=== PATIENT | female | born 1990 | race Caucasian/White ===

== ENCOUNTER 2016-10-23 16:34 | Emergency (ER) | payer OTHER ==
[~2016-10-23] VITALS: Wt 105.5 kg
[~2016-10-23 16:34] MED LIST: AMO500 PO; IBUP-1542 PO; LORA-441 PO; ONDA4TAB35 PO
[2016-10-23 19:07] VITALS: BP 140/72; PULSE 98; RESP 20; TEMP 98
--- NOTE | 2016-10-23 19:45 | ERD ---
ER Documentation Chief Complaint Date/Time DATE: 10/23/16 TIME: 19:42 Chief Complaint HEADACHE, NUMBNESS ON FACE, DIZZINESS, ONSET 3 DAYS HPI Patient is a 26-year-old female with no medical problems who presents with facial tingling and hand tingling. The patient has bilateral facial tingling of bilateral arm and hand tingling. The symptoms started 3 days ago. She has had no treatment as of yet. She had headache and shortness of breath as well. She called her primary doctor but there was nobody available. The symptoms have been the same over the past 3 days. ROS All systems reviewed and are negative except as per history of present illness. Medications Home Meds Active Scripts Ibuprofen* (Motrin*) 600 Mg Tab, 600 MG PO Q6, #30 TAB Prov:MANUEL WAGNER PA-C 07/29/16 Amoxicillin* (Amoxicillin*) 500 Mg Cap, 500 MG PO TID for 10 Days, CAP Prov:MANUEL WAGNER PA-C 07/29/16 Ondansetron Hcl* (Zofran* ODT) 4 mg -ODT Tab.disper, 4 MG PO Q6 Y for NAUSEA AND /OR VOMITING, #20 TAB Prov:JUAN ZIMMER PA-C 05/16/16 Ibuprofen* (Motrin*) 600 Mg Tab, 600 MG PO Q6, #30 TAB Prov:JUAN ZIMMER PA-C 05/16/16 Lorazepam* (Ativan*) 0.5 Mg Tablet, 0.5 MG PO Q8, #14 Prov:TERRA CARMONA PA-C 07/08/15 Allergies Allergies: Coded Allergies: No Known Allergy (Verified , 10/23/16) PMhx/Soc History of Surgery: Yes (cholesystectomy) Anesthesia Reaction: No Hx Neurological Disorder: No Hx Respiratory Disorders: No Hx Cardiac Disorders: No Hx Psychiatric Problems: No Hx Miscellaneous Medical Probl: No Hx Alcohol Use: No Hx Substance Use: No Hx Tobacco Use: No Smoking Status: Never smoker FmHx Family History: diabetes Physical Exam Vitals Vital Signs Date Time Temp Pulse Resp B/P Pulse Ox O2 Delivery O2 Flow Rate FiO2 10/23/16 19:07 98.0 98 20 140/72 97 Room Air 10/23/16 16:38 98.2 106 18 147/80 97 Physical Exam Const: No acute distress Head: Atraumatic Eyes: Normal Conjunctiva ENT: Normal External Ears, Nose and Mouth. Neck: Full range of motion..~ No meningismus. Resp: Clear to auscultation bilaterally Cardio: Regular rate and rhythm, no murmurs Abd: Soft, non tender, non distended. Normal bowel sounds Skin: No petechiae or rashes Back: No midline or flank tenderness Ext: No cyanosis, or edema Neur: Awake and alert, cranial nerves II through XII intact, strength is 5 out of 5 in all 4 extremities, no pronator drift Psych: Normal Mood and Affect Results 24 hrs Laboratory Tests Test 10/23/16 18:41 Bedside Glucose 97mg/dL Procedures/[facility] Urine test is positive. EKG read by me: Rate/Rhythm: Regular rate and rhythm at a normal rate Intervals: Normal Impression: No evidence of ischemia or arrhythmia Accu-Chek is normal. Patient is a 26-year-old female presents with paresthesias of the face and hands. Her EKG and Accu-Chek are normal. Her urine test is positive and I believe she has new onset . She has no abdominal pain or vaginal bleeding and I do not believe she requires further workup for ectopic at this time. I believe outpatient management is appropriate. The patient can follow-up with her primary doctor. She was trying to get . Departure Diagnosis: Primary Impression: Weeks of gestation: unspecified Qualified Code: Z33.1 - , unspecified gestational age Additional Impression: Facial paresthesia Condition: Fair Patient Instructions: , New Dx, Paraesthesias Additional Instructions: Call your primary care doctor TOMORROW for an appointment during the next 1-2 days.See the doctor sooner or return here if your condition worsens before your appointment time. COLIN SR MD Oct 23, 2016 19:45
== END 2016-10-23 19:06 | disposition home or self-care (01) ==
LOC: FTE 16:34
DX: R20.2 Paresthesia of skin (principal); R06.02 Shortness of breath; Z33.1 Pregnant state, incidental
CPT/HCPCS: 82962; 93005; Z7502

== ENCOUNTER 2016-11-08 11:28 | Emergency (ER) | END 2016-11-08 16:09 | disposition home or self-care (01) | DX: O26.891 Other specified pregnancy related conditions, first trimester (principal); R10.2 Pelvic and perineal pain; Z3A.01 Less than 8 weeks gestation of pregnancy | CPT/HCPCS: 36415; 76801; 76817; 81001; 84702; 85025; 86900; 86901; Z7502 ==

== ENCOUNTER 2016-12-23 11:35 | Emergency (ER) | payer OTHER ==
[~2016-12-23] VITALS: Ht 157.5 cm; Wt 89.9 kg
[~2016-12-23 11:35] MED LIST changes: +CEPH-443 PO
[2016-12-23 11:37] VITALS: Ht 157.5 cm; Wt 89.9 kg
[2016-12-23] MEDS ORDERED: ACETAMINOPHEN 500 MG TAB PO STA (13:36)
[2016-12-23] MEDS ORDERED: ONDANSETRON (ODT) 4 MG TAB ODT STA (13:36)
--- NOTE | 2016-12-23 14:44 | RADRPT ---
PROCEDURE: US OB. CLINICAL INDICATION: Size and dates , pelvic pain TECHNIQUE: Multiple sonographic images of the pelvis and gravid uterus were obtained. The images were reviewed on a PACS workstation. COMPARISON: 11/08/16 FINDINGS: There is a single viable intrauterine gestation. Cardiac activity is present with 150 beats per min joe. There is a variable presentation. The placenta is anterior. There is no evidence for an abruption or placenta previa. Measurements were made in order to determine age. The results are as follows: BPD =2.5 cm HC =9.1 cm AC =8.3 cm FL =1.2 cm Estimated gestational age of approximately 14 weeks and 1 day based on ultrasound measurements. Clinical age: 13 weeks and 4 days. The estimated date of delivery is 06/22/17, based on ultrasound measurements. The EFW = 88 g, 64.8%, based on LMP age. RPTAT: AA IMPRESSION: Single viable intrauterine gestation of approximately 14 weeks and 1 day based on ultrasound measur ements. .Kian Moreno MD, Date Time Electronically viewed and signed by .Kian Moreno MD, on 12/23/2016 14:43 .S/
[2016-12-23] MEDS ORDERED: D-ME473S2 PO (15:14)
[2016-12-23] MEDS ORDERED: TYL500 PO (15:14)
--- NOTE | 2016-12-23 15:46 | ERD ---
ER Documentation Chief Complaint Date/Time DATE: 12/23/16 TIME: 15:44 Chief Complaint FLU X 3 DAYS, 13 WEEKS HPI This is a 26-year-old female that presents to the ER with fever, cough, body aches, nausea, vomiting for the last 2 days. Patient states that she is 13 weeks she denies any vaginal bleeding. She does admit to pelvic pain whenever she coughs. She denies any chest pain or shortness of breath. Vomiting is nonbilious nonbloody. She denies any diarrhea. ROS 12 point review of systems was done, all negative except per HPI. Medications Home Meds Active Scripts Acetaminophen* (Tylenol*) 500 Mg Tab, 1000 MG PO Q8H Y for PAIN AND OR ELEVATED TEMP for 3 Days, TAB Prov:YELENA HERRERA 12/23/16 Dextromethorphan Hb-Promethazine Hcl* (Promethazine DM* Syrup) 473 Ml Syrup, 10 ML PO Q6 Y for COUGH for 7 Days, ML Prov:YELENA HERRERA 12/23/16 Cephalexin* (Keflex*) 500 Mg Capsule, 500 MG PO BID for 7 Days, CAP Prov:BETZY GREEN PA-C 11/08/16 Ibuprofen* (Motrin*) 600 Mg Tab, 600 MG PO Q6, #30 TAB Prov:MANUEL WAGNER PA-C 07/29/16 Amoxicillin* (Amoxicillin*) 500 Mg Cap, 500 MG PO TID for 10 Days, CAP Prov:MANUEL WAGNER PA-C 07/29/16 Ondansetron Hcl* (Zofran* ODT) 4 mg -ODT Tab.disper, 4 MG PO Q6 Y for NAUSEA AND /OR VOMITING, #20 TAB Prov:JUAN ZIMMER PA-C 05/16/16 Ibuprofen* (Motrin*) 600 Mg Tab, 600 MG PO Q6, #30 TAB Prov:JUAN ZIMMER PA-C 05/16/16 Lorazepam* (Ativan*) 0.5 Mg Tablet, 0.5 MG PO Q8, #14 Prov:TERRA CARMONA PA-C 07/08/15 Allergies Allergies: Coded Allergies: No Known Allergy (Verified , 11/08/16) PMhx/Soc History of Surgery: Yes (CHOLECYSECTOMY) Anesthesia Reaction: No Hx Neurological Disorder: No Hx Respiratory Disorders: No Hx Cardiac Disorders: No Hx Psychiatric Problems: No Hx Miscellaneous Medical Probl: Yes (gestational DM) Hx Alcohol Use: No Hx Substance Use: No Hx Tobacco Use: No Smoking Status: Never smoker Physical Exam Vitals Vital Signs Date Time Temp Pulse Resp B/P Pulse Ox O2 Delivery O2 Flow Rate FiO2 12/23/16 11:37 98.1 96 20 139/79 99 Physical Exam GENERAL: The patient is well-developed, well-nourished, in no acute distress. NECK: Cervical spine is non tender with no step off. Supple, no nuchal rigidity HEENT: Atraumatic. Pupils equal, round and reactive to light. Extraocular muscles are grossly intact. Conjunctivae pink, no discharge. Bilateral tympanic membranes are clear with no evidence of erythema, effusion or dulling of the light reflex. Tonsilar erythema with no exudates or uvular deviation. Clear rhinorrhea. RESPIRATORY: Clear to auscultation bilaterally. There are no rales, wheezes or rhonchi. HEART: Regular rate and rhythm. No murmurs, clicks, rubs or gallops. EXTREMITIES: No clubbing or cyanosis. Full range of motion. Grossly neurovascularly intact. NEUROLOGIC: Alert and oriented. Cranial nerves II through XII are intact. SKIN: There is no rash. The skin is warm and dry. Results 24 hrs Current Medications Medications (Trade) Dose Ordered Sig/Stepan Route PRN Reason Start Time Stop Time Status Last Admin Dose Admin Ondansetron HCl (Zofran Odt) 4 mg ONCE STAT ODT 12/23/16 13:36 12/23/16 13:38 DC 12/23/16 13:44 Acetaminophen (Tylenol Tab) 1,000 mg ONCE STAT PO 12/23/16 13:36 12/23/16 13:38 DC 12/23/16 13:44 Procedures/MDM Differential diagnosis includes but is not limited to; Viral URI, allergic rhinitis, bronchitis, pertussis,pneumonia. This is likely viral in etiology. Clinical suspicion for pneumonia is low as patient appears well, is not hypoxic or in any respiratory distress. Additionally, patients physical examination is benign. Plan was discussed with patient they understand and agree. Patient needs to follow up with PCP in 1-2 days or return to ER sooner if symptoms worsen. Departure Diagnosis: Primary Impression: Upper respiratory infection Condition: Stable Patient Instructions: Preventing Common Respiratory Infections Additional Instructions: Call your primary care doctor TOMORROW for an appointment during the next 1-2 days.See the doctor sooner or return here if your condition worsens before your appointment time. YELENA HERRERA Dec 23, 2016 15:46
== END 2016-12-23 15:33 | disposition home or self-care (01) ==
LOC: FTE 11:35
DX: O99.512 Diseases of the respiratory system complicating pregnancy, second trimester (principal); J06.9 Acute upper respiratory infection, unspecified; Z3A.14 14 weeks gestation of pregnancy
CPT/HCPCS: 76805; 87400; Z7502; Z7610

== ENCOUNTER 2016-12-31 23:12 | Emergency (ER) | payer OTHER ==
[~2016-12-31] VITALS: Ht 162.6 cm; Wt 99.5 kg
[~2016-12-31 23:12] MED LIST changes: +D-ME473S2 PO; +TYL500 PO
[2016-12-31 23:19] VITALS: Ht 162.6 cm; Wt 99.5 kg
[2017-01-01] MEDS ORDERED: RANITIDINE 150 MG TAB PO ONE (02:00)
--- NOTE | 2017-01-01 02:10 | ERD ---
ER Documentation Chief Complaint Date/Time DATE: 01/01/17 TIME: 02:10 Chief Complaint AP with cramping. 14 weeks HPI 26 year old female presents with CC abdominal cramping, she is 14 weeks . Associated symptoms include one episode of vomiting, diarrhea SCHAEFER and fatigue. She denies vaginal bleeding, dysuria and fever. She rates her pain a 10 /10 in severity, has not taken meds for relief. ROS All systems reviewed and are negative except as per history of present illness. Medications Home Meds Active Scripts Ranitidine Hcl* (Zantac*) 150 Mg Tablet, 150 MG PO BID Y for EPIGASTRIC PAIN, # 30 TAB Prov:Kim Vines PA-C 01/01/17 Dicyclomine Hcl* (Bentyl*) 10 Mg Capsule, 10 MG PO BID for 5 Days, #10 CAP Prov:Kim Vines PA-C 01/01/17 Acetaminophen* (Tylenol*) 500 Mg Tab, 1000 MG PO Q8H Y for PAIN AND OR ELEVATED TEMP for 3 Days, TAB Prov:YELENA HERRERA 12/23/16 Dextromethorphan Hb-Promethazine Hcl* (Promethazine DM* Syrup) 473 Ml Syrup, 10 ML PO Q6 Y for COUGH for 7 Days, ML Prov:YELENA HERRERA 12/23/16 Cephalexin* (Keflex*) 500 Mg Capsule, 500 MG PO BID for 7 Days, CAP Prov:BETZY GREEN PA-C 11/08/16 Ibuprofen* (Motrin*) 600 Mg Tab, 600 MG PO Q6, #30 TAB Prov:MANUEL WAGNER PA-C 07/29/16 Amoxicillin* (Amoxicillin*) 500 Mg Cap, 500 MG PO TID for 10 Days, CAP Prov:MANUEL WAGNER PA-C 07/29/16 Ondansetron Hcl* (Zofran* ODT) 4 mg -ODT Tab.disper, 4 MG PO Q6 Y for NAUSEA AND /OR VOMITING, #20 TAB Prov:JUAN ZIMMER PA-C 05/16/16 Ibuprofen* (Motrin*) 600 Mg Tab, 600 MG PO Q6, #30 TAB Prov:JUAN ZIMMER PA-C 05/16/16 Lorazepam* (Ativan*) 0.5 Mg Tablet, 0.5 MG PO Q8, #14 Prov:TERRA CARMONA PA-C 07/08/15 Allergies Allergies: Coded Allergies: No Known Allergy (Verified , 11/08/16) PMhx/Soc History of Surgery: Yes (CHOLECYSECTOMY) Anesthesia Reaction: No Hx Neurological Disorder: No Hx Respiratory Disorders: No Hx Cardiac Disorders: No Hx Psychiatric Problems: No Hx Miscellaneous Medical Probl: Yes (gestational DM) Hx Alcohol Use: No Hx Substance Use: No Hx Tobacco Use: No Smoking Status: Never smoker Physical Exam Vitals Vital Signs Date Time Temp Pulse Resp B/P Pulse Ox O2 Delivery O2 Flow Rate FiO2 01/01/17 04:49 98.4 87 16 143/73 99 Room Air 12/31/16 23:19 98.9 103 18 143/85 97 Physical Exam GENERAL: No acute distress and nontoxic. LUNGS: Clear to auscultation. No accessory muscle use. No wheezing, no crackles. No signs or symptoms of respiratory distress. HEART: Regular rate and rhythm. No murmurs, clicks, rubs or gallops. ABDOMEN: Soft, mild tenderness to palpation of epigastric area and nondistended. Bowel sounds positive. No rebound or guarding. No gross peritoneal signs. No Leyva or McBurney point tenderness. No gross masses. BACK: No midline tenderness, no costovertebral tenderness. EXTREMITIES: There is no peripheral cyanosis or edema. No focal pain or notable trauma. Full range of motion. Good capillary refill. NEURO: The patient moves all 4 extremities with 5/5 strength. Cranial nerves are grossly intact. Normal mental status for age. Good muscle tone. SKIN: There is no apparent rash, petechiae, erythema or swelling. Good skin turgor. Result Diagram: 01/01/17 0200 01/01/17 0200 Results 24 hrs Laboratory Tests Test 01/01/17 02:00 Alanine Aminotransferase (ALT/SGPT) 18IU/L Albumin 4.5g/dl Albumin/Globulin Ratio 1.09 Alkaline Phosphatase 78IU/L Anion Gap 21 Aspartate Amino Transf (AST/SGOT) 15IU/L Basophils # 0.010^3/ul Basophils % 0.2% Blood Urea Nitrogen 9mg/dl Calcium Level 9.7mg/dl Carbon Dioxide Level 22mmol/L Chloride Level 102mmol/L Creatinine 0.54mg/dl Direct Bilirubin 0.00mg/dl Eosinophils # 0.010^3/ul Eosinophils % 0.2% Globulin 4.10g/dl Glucose Level 105mg/dl Hematocrit 40.9% Hemoglobin 14.4g/dl Indirect Bilirubin 0.2mg/dl Lipase 70U/L Lymphocytes # 1.410^3/ul Lymphocytes % 7.2% Mean Corpuscular Hemoglobin 32.1pg Mean Corpuscular Hemoglobin Concent 35.2g/dl Mean Corpuscular Volume 91.1fl Mean Platelet Volume 9.7fl Monocytes # 0.610^3/ul Monocytes % 3.0% Neutrophils # 16.910^3/ul Neutrophils % 89.0% Nucleated Red Blood Cells # 0.010^3/ul Nucleated Red Blood Cells % 0.0/100WBC Platelet Count 10209^3/UL Potassium Level 4.0mmol/L Red Blood Count 4.4910^6/ul Red Cell Distribution Width 12.3% Sodium Level 141mmol/L Total Bilirubin 0.2mg/dl Total Protein 8.6g/dl Urine Bacteria MODERATE Urine Bilirubin NEGATIVE Urine Calcium Oxalate Crystals MODERATE Urine Clarity CLEAR Urine Color YELLOW Urine Glucose NEGATIVE% Urine Hemoglobin 1+ Urine Ketones NEGATIVE Urine Leukocyte Esterase NEGATIVE Urine Microscopic RBC 2-5/HPF Urine Microscopic WBC 0-2/HPF Urine Nitrite NEGATIVE Urine Specific Jordan >=1.030 Urine Squamous Epithelial Cells FEW Urine Total Protein NEGATIVE Urine Urobilinogen 0.2 E.U./dL Urine pH 5.5 White Blood Count 19.010^3/ul Current Medications Medications (Trade) Dose Ordered Sig/Stepan Route PRN Reason Start Time Stop Time Status Last Admin Dose Admin Ranitidine HCl (Zantac) 150 mg ONCE ONCE PO 01/01/17 02:00 01/01/17 02:01 DC 01/01/17 02:06 Dicyclomine HCl (Bentyl) 20 mg ONCE ONCE PO 01/01/17 02:30 01/01/17 02:31 DC 01/01/17 02:45 Metoclopramide HCl (Reglan Liq) 10 mg ONCE ONCE PO 01/01/17 03:00 01/01/17 03:01 DC 01/01/17 02:51 Procedures/MDM Patient is 14 weeks , on exam she has mild epigastric tenderness. I ordered Reglan and Bentyl for nausea and pain, since these are safe to use during . I also ordered basic lab work and a pelvic ultrasound. Awaiting results prior to further management. CBC: marked leukocytosis, likely due to and viral illness CMP: no severe electrolyte imbalance, normal kidney and liver function Lipase: WNL, pancreatitis unlikely OB US (interpretation by radiologist): IMPRESSION: Single viable intrauterine gestation of approximately 15 weeks 1 day. The estimated date of delivery is June 24, 2017. I consulted with my supervising physician over the leukocytosis and he stated that as long as pelvic US is normal, has stable vitals, and appears to be in NAD she can be discharged as it is normal for increases in WBC during . I reexamined the patient, she was sound asleep and then woke to tell me that her Sx had improved. I gave her a copy of all of her results and advised her to follow-up. She had a negative murphys sign, no rebound tenderness, and no tenderness over mcburneys point. At this time I have low suspicion for cholecystitis, pancreatitis, appendicitis, bowel obstruction, demise, UTI, pyelonephritis , and sepsis. Patient is stable for discharge and outpatient management. Advised to follow-up with PCP in 1-2 days. Departure Diagnosis: Primary Impression: Abdominal pain Abdominal location: epigastric Qualified Code: R10.13 - Epigastric pain Additional Impression: Second trimester Condition: Good Kim Vines PA-C Jan 01, 2017 02:10
[2017-01-01 02:17] LABS: ADD SCAN DIFF NO
[2017-01-01 02:19] LABS: BASOPHILS % 0.2 % (0.0-2.0); EOSINOPHILS % 0.2 % (0.0-7.0); HEMATOCRIT 40.9 % (37.0-47.0); HEMOGLOBIN 14.4 g/dl (12.0-16.0); LYMPHOCYTES # 1.4 10^3/ul (0.8-2.9); LYMPHOCYTES % 7.2 % (15.0-51.0); MEAN CORPUSCULAR HEMOGLOBIN 32.1 pg (29.0-33.0); MEAN CORPUSCULAR HGB CONC 35.2 g/dl (32.0-37.0); MEAN CORPUSCULAR VOLUME 91.1 fl (82.0-101.0); MEAN PLATELET VOLUME 9.7 fl (7.4-10.4); MONOCYTE # 0.6 10^3/ul (0.3-0.9); NEUTROPHIL # 16.9 10^3/ul (1.6-7.5); PLATELET COUNT 395 10^3/UL (140-415); RED BLOOD COUNT 4.49 10^6/ul (4.20-5.40); RED CELL DISTRIBUTION WIDTH 12.3 % (11.5-14.5)
[2017-01-01 02:23] LABS: ADD UMIC YES; URINE BILIRUBIN (Dip) NEGATIVE (NEGATIVE); URINE BLOOD (Dip) 1+ (NEGATIVE); URINE COLOR YELLOW (YELLOW); URINE GLUCOSE (Dip) NEGATIVE (NEGATIVE); URINE KETONES (Dip) NEGATIVE (NEGATIVE); URINE LEUKOCYTE ESTERASE (Dip) NEGATIVE (NEGATIVE); URINE NITRITE (Dip) NEGATIVE (NEGATIVE); URINE TOTAL PROTEIN (Dip) NEGATIVE (NEGATIVE); URINE UROBILINOGEN (Dip) 0.2 E.U./dL (0.1-1.0)
[2017-01-01] MEDS ORDERED: DICYCLOMINE 10 MG CAP PO ONE (02:30)
[2017-01-01 02:32] LABS: ALBUMIN 4.5 g/dl (3.3-4.9)
[2017-01-01 02:35] LABS: BILIRUBIN,INDIRECT 0.2 mg/dl (0-1.1); BILIRUBIN,TOTAL 0.2 mg/dl (0.2-1.3); CREATININE 0.54 mg/dl (0.44-1.00)
[2017-01-01 02:36] LABS: ALBUMIN/GLOBULIN RATIO 1.09; CALCIUM 9.7 mg/dl (8.4-10.2); TOTAL PROTEIN 8.6 g/dl (6.1-8.1)
[2017-01-01 02:38] LABS: SQUAMOUS EPITHELIAL CELL,UR FEW
[2017-01-01 02:39] LABS: BACTERIA,URINE MODERATE
[2017-01-01] MEDS ORDERED: METOCLOPRAMIDE (1 MG/ML) 10 ML CUP PO ONE (03:00)
--- NOTE | 2017-01-01 04:14 | RADRPT ---
PROCEDURE: ULTRASOUND OBSTETRICAL CLINICAL INDICATION: 26-year-old female with abdominal pain. TECHNIQUE: Multiple sonographic images of the pelvis were obtained. The images were reviewed on a PACS workstation. COMPARISON: No prior studies are available for comparison. FINDINGS: The cervix is not well visualized. There is a single viable intrauterine gestation. Cardiac activit y is present with 159 beats per minute. There is a variable presentation. Measurements were made in order to determine age. The results are as follows: BPD = 2.86 cm, HC = 10.68 cm, AC = 8.66 cm, FL = 1.72 cm. This yields and estimated gestational age of approximately 15 weeks 1 day. The estimated date of delivery is June 24, 2017. The EFW = 113 +/- 17 g. The GP is 78%. The placenta is anterior. There is no evidence for an abruption or placenta previa. There is an adequate amount of amniotic fluid with the maximal vertical pocket of 3.0 cm. IMPRESSION: Single viable intrauterine gestation of approximately 15 weeks 1 day. The estimated date of deliver y is June 24, 2017. .Elbert Landaverde MD, Date Time Electronically viewed and signed by .Elbert Landaverde MD, MD on 01/01/2017 04:13 .M/
[2017-01-01] MEDS ORDERED: RANI150T9 PO (04:35)
[2017-01-01] MEDS ORDERED: DICY10CA60 PO (04:35)
[2017-01-01 04:49] VITALS: BP 143/73; PULSE 87; RESP 16; TEMP 98.4
== END 2017-01-01 04:51 | disposition home or self-care (01) ==
LOC: FTE 23:12
DX: O26.892 Other specified pregnancy related conditions, second trimester (principal); R10.13 Epigastric pain; Z3A.15 15 weeks gestation of pregnancy
CPT/HCPCS: 76805; 80053; 81001; 83690; 85025; Z7610; 81003

== ENCOUNTER 2017-02-20 12:30 | Inpatient (IN) | payer OTHER ==
[~2017-02-20] VITALS: Ht 162.6 cm; Wt 99.8 kg
[~2017-02-20 12:30] MED LIST changes: +DICY10CA60 PO; +RANI150T9 PO
[2017-02-20 12:51] VITALS: Ht 162.6 cm; Wt 99.8 kg
[2017-02-20 12:52] VITALS: BP 129/62; PULSE 90
[2017-02-20] MEDS ORDERED: PRENAT PO (12:53)
[2017-02-20] MEDS: LACTATED RINGER'S 1,000 ML IV SCH ×6 (13:56→23:45)
--- NOTE | 2017-02-20 14:01 | RADRPT ---
PROCEDURE: Limited OB ultrasound for cervical length. CLINICAL INDICATION: labor TECHNIQUE: Sonographic evaluation to assess the cervical length was performed. Transvaginal imagi ng of the gravid uterus was performed. COMPARISON: OB ultrasound 01/01/2017 FINDINGS: The cervix appears open with a diameter of approximately 3.7 cm. There is no segment of the cervix which appears closed. presentation is cephalic. The placenta is anterior. There is no evide nce of abruption or placenta previa. Positive heart tones are seen. The heart rate equ al 150 bpm. IMPRESSION: 1. The cervix is dilated with a diameter of approximately 3.7 cm. RPTAT: KK .Jason Selby MD, MD Date Time Electronically viewed and signed by .Jason Selby MD, MD on 02/20/2017 14:00 .B/
[2017-02-20 14:11] LABS: ADD UMIC YES; URINE BILIRUBIN (Dip) NEGATIVE (NEGATIVE); URINE BLOOD (Dip) TRACE (NEGATIVE); URINE COLOR LT. YELLOW (YELLOW); URINE GLUCOSE (Dip) NEGATIVE (NEGATIVE); URINE KETONES (Dip) TRACE (NEGATIVE); URINE LEUKOCYTE ESTERASE (Dip) TRACE (NEGATIVE); URINE NITRITE (Dip) NEGATIVE (NEGATIVE); URINE TOTAL PROTEIN (Dip) NEGATIVE (NEGATIVE); URINE UROBILINOGEN (Dip) 0.2 E.U./dL (0.1-1.0)
[2017-02-20 14:23] LABS: BACTERIA,URINE FEW
--- NOTE | 2017-02-20 15:36 | RADRPT ---
PROCEDURE: US OB. CLINICAL INDICATION: Size and dates , open cervix TECHNIQUE: Multiple sonographic images of the pelvis and gravid uterus were obtained. The images were reviewed on a PACS workstation. COMPARISON: Same day FINDINGS: There is a single viable intrauterine gestation. Cardiac activity is present with 152 beats per min joe. There is a vertex/variable presentation. The placenta is anterior. There is no evidence for an abruption or placenta previa. There is a normal amount of amniotic fluid with a MVP = 5.1 cm. Measurements were made in order to determine age. The results are as follows: BPD =5.4 cm HC =19.3 cm AC =20.3 cm FL =3.9 cm Estimated gestational age of approximately 22 weeks and 6 days based on ultrasound measurements. Clinical age: 22 weeks and 0 days. The estimated date of delivery is 06/20/2017, based on ultrasound measurements. The EFW = 609 g, >97%, based on LMP age. RPTAT: AA IMPRESSION: Single viable intrauterine gestation of approximately 22 weeks and 6 days based on ultrasound measu rements. .Kian Moreno MD, Date Time Electronically viewed and signed by .Kian Moreno MD, on 02/20/2017 15:36 .S/
[2017-02-20] MEDS ORDERED: MAGNESIUM SULFATE 20 GM/500 ML 500 ML IV SCH ×2 (15:44→16:00)
[2017-02-20] MEDS ORDERED: OXYTOCIN 30 UNITS/LR 500 ML IV SCH ×2 (16:00)
[2017-02-20] MEDS ORDERED: LIDOCAINE 1% (MPF) 30 ML INJ INJ PRN (16:00)
[2017-02-20] MEDS ORDERED: MAGNESIUM SULFATE 4 GM/100 ML 100 ML IV ONE (16:00)
[2017-02-20] MEDS ORDERED: MAGNESIUM SULFATE 4 GM/100 ML 100 ML IVPB ONE (16:00)
[2017-02-20] MEDS ORDERED: BETAMET NA PHOS/AC(6 MG/ML) 5ML INJ IM ONE (16:00)
[2017-02-20] MEDS ORDERED: OXYTOCIN 30 UNITS/LR 500 ML IV PRN (16:00)
[2017-02-20] MEDS ORDERED: AMPICILLIN 2 GM/NS (PMX) 100 ML IV ONE (16:00)
[2017-02-20] MEDS ORDERED: LACTATED RINGER'S 1,000 ML IV PRN (16:00)
[2017-02-20] MEDS ORDERED: MISOPROSTOL 200 MCG TAB PR PRN (16:00)
[2017-02-20] MEDS ORDERED: METHYLERGONOVINE 0.2 MG INJ IM PRN (16:00)
[2017-02-20] MEDS ORDERED: CARBOPROST 250 MCG INJ IM PRN (16:00)
[2017-02-20 17:10] LABS: ADD SCAN DIFF NO
[2017-02-20 17:14] LABS: BASOPHILS % 0.1 % (0.0-2.0); EOSINOPHILS % 0.2 % (0.0-7.0); HEMATOCRIT 35.9 % (37.0-47.0); LYMPHOCYTES # 1.5 10^3/ul (0.8-2.9); LYMPHOCYTES % 9.5 % (15.0-51.0); MEAN CORPUSCULAR HEMOGLOBIN 30.8 pg (29.0-33.0); MEAN CORPUSCULAR HGB CONC 33.4 g/dl (32.0-37.0); MEAN CORPUSCULAR VOLUME 92.3 fl (82.0-101.0); MONOCYTE # 0.9 10^3/ul (0.3-0.9); MONOCYTES % 5.3 % (0.0-11.0); NEUTROPHIL # 13.5 10^3/ul (1.6-7.5); NEUTROPHILS % 84.3 % (39.0-77.0); PLATELET COUNT 267 10^3/UL (140-415); RED BLOOD COUNT 3.89 10^6/ul (4.20-5.40); RED CELL DISTRIBUTION WIDTH 13.5 % (11.5-14.5); WHITE BLOOD COUNT 16.1 10^3/ul (4.8-10.8)
[2017-02-20 17:34] LABS: INR 1.04; PROTIME 13.6 Sec (12.2-14.2); PT RATIO 1.1
[2017-02-20 17:35] LABS: PARTIAL THROMBOPLASTIN TIME 30.8 Sec (25.0-35.0)
[2017-02-20] MEDS ORDERED: BUTORPHANOL 2 MG INJ IV PRN ×2 (18:30)
--- NOTE | 2017-02-20 18:47 | ERD ---
DATE OF SERVICE: The patient is a 26-year-old who is a ____ who presents at 22 weeks and complaining of cramping. No vaginal bleeding, positive movement. PAST MEDICAL HISTORY: None. PAST SURGICAL HISTORY: None. ____ at term. PHYSICAL EXAMINATION: VITAL SIGNS: Stable. GENERAL: Examination within normal limits. ULTRASOUND: Shows a at 22.6 weeks, 619 grams, notes dilation of the cervix to 3.7 cm. Ve rtex presentation. UA: possible UTI. ASSESSMENT: ____ at 22 weeks with labor. The infant's weight is 619 grams. Disc ussion had with the perinatologist who felt that due to the weight, the patient would be started on magnesium sulfate, betamethasone, and also ampicillin and NICU consult also will be done. I told the patient the fact that the infant is very , at this point, we will try to stop the labor. Risks and benefits of admission discussed, as well as infection, bleeding, damage to organs all discussed. The patient understands the risks and consents to hospital admission, consents to ma gnesium sulfate and betamethasone. All questions were answered. Dictated By: HANNAH COULTER MD /NTS Conf#: [id number] DID#: [id number]
[2017-02-20] MEDS: AMPICILLIN 1 GM/NS (PMX) 50 ML IV SCH (20:12)
[2017-02-20] MEDS ORDERED: MISOPROSTOL 25 MCG CAPSULE PO ONE (22:00)
[2017-02-21] MEDS: AMPICILLIN 1 GM/NS (PMX) 50 ML IV SCH
--- NOTE | 2017-02-21 01:21 | LDN ---
Date/Time of Note Date/Time of Note DATE: 02/21/17 TIME: : Delivery Summary normal vaginal delivery Weeks of Gestation 22w Placenta Delivered: Spontaneously, Intact & Complete Episiotomy: No Perineal laceration: 0 Anesthesia type: None Estimated blood loss: 300 Sponge & Needle done & correct: Yes All needle counts correct: Yes Any foreign bodies felt in the: No Problems: Delivery Information Sex Infant Sex: female Apgars 1 Minute: 1 5 Minute: 1 Suctioning Nose & mouth suctioned at lukas: No Delee suction performed: No Umbilical Cord Umbilical cord with: 3 Vessels Cord presentations: no nuchal cord Mother & Baby Disposition Disposition Mom & Baby to Maternity; Good: No Mom transferred to: Other ([facility]) Baby to NICU: Yes ([facility]) STELLA MON MD February 21, 2017 01:21
[2017-02-21 02:00] VITALS: BP 103/58; PULSE 100; RESP 18
[2017-02-21] MEDS ORDERED: OXYCODONE/ASPIRIN (4.88/325) TAB PO PRN ×2 (02:30)
[2017-02-21] MEDS ORDERED: MISOPROSTOL 200 MCG TAB PR PRN (02:30)
[2017-02-21] MEDS ORDERED: WITCH HAZEL/GLYCERIN PAD PR PRN (02:30)
[2017-02-21] MEDS: LACTATED RINGER'S 1,000 ML IV SCH ×2 (02:30→09:38)
[2017-02-21] MEDS ORDERED: BENZOCAINE 20% 56 ML SPRAY TOP PRN (02:30)
[2017-02-21] MEDS ORDERED: METHYLERGONOVINE 0.2 MG INJ IM PRN (02:30)
[2017-02-21] MEDS ORDERED: OXYTOCIN 30 UNITS/LR 500 ML IV PRN (02:30)
[2017-02-21] MEDS ORDERED: ZOLPIDEM 5 MG TAB PO PRN (02:30)
[2017-02-21] MEDS ORDERED: CARBOPROST 250 MCG INJ IM PRN (02:30)
[2017-02-21] MEDS ORDERED: LANOLIN 7 GM TUBE TOP PRN (02:30)
[2017-02-21] MEDS: IBUPROFEN 600 MG TAB PO SCH ×3 (06:18→17:45)
[2017-02-21 07:39] LABS: ADD SCAN DIFF NO; BASOPHILS % 0.1 % (0.0-2.0); HEMATOCRIT 29.8 % (37.0-47.0); HEMOGLOBIN 10.3 g/dl (12.0-16.0); LYMPHOCYTES # 1.3 10^3/ul (0.8-2.9); LYMPHOCYTES % 6.3 % (15.0-51.0); MEAN CORPUSCULAR HEMOGLOBIN 32.1 pg (29.0-33.0); MEAN CORPUSCULAR HGB CONC 34.6 g/dl (32.0-37.0); MEAN CORPUSCULAR VOLUME 92.8 fl (82.0-101.0); MEAN PLATELET VOLUME 10.4 fl (7.4-10.4); MONOCYTE # 0.7 10^3/ul (0.3-0.9); MONOCYTES % 3.5 % (0.0-11.0); NEUTROPHIL # 18.1 10^3/ul (1.6-7.5); NEUTROPHILS % 89.3 % (39.0-77.0); PLATELET COUNT 267 10^3/UL (140-415); RED BLOOD COUNT 3.21 10^6/ul (4.20-5.40); RED CELL DISTRIBUTION WIDTH 13.2 % (11.5-14.5); WHITE BLOOD COUNT 20.2 10^3/ul (4.8-10.8)
[2017-02-21 08:26] VITALS: BP 117/58; PULSE 82; RESP 18
[2017-02-21] MEDS: SENNA/DOCUSATE NA (8.6MG/50MG) TAB PO SCH ×2 (09:00→21:00)
[2017-02-21 13:03] VITALS: BP 124/74; PULSE 86; RESP 18
[2017-02-21 16:31] VITALS: BP 124/74; PULSE 86; RESP 18
--- NOTE | 2017-02-21 17:21 | QN ---
Documentation Comment Day 1 post normal vaginal delivery of a 20 week baby waited 600 g is in NICU, she seems depressed tried to encourage optimist. Otherwise physically she is doing well HUSSEIN DOLAN MD February 21, 2017 17:21
--- NOTE | 2017-02-21 23:10 | QN ---
Documentation Comment 22weeks cervical dilatation transferred from triage to l&d HUSSEIN DOLAN MD February 21, 2017 23:10
[2017-02-22] MEDS: IBUPROFEN 600 MG TAB PO SCH ×2 (06:00)
[2017-02-22] MEDS: SENNA/DOCUSATE NA (8.6MG/50MG) TAB PO SCH (09:00)
[2017-02-23] MEDS ORDERED: DIPHTH/TET/ACEL PERTUSS (ADULT) 0.5 ML VIAL IM* ONE (09:00)
== END 2017-02-22 11:26 | disposition home or self-care (01) | DRG 775 ==
LOC: OBT 12:30 → L-D 12:31 → OBT 15:35 → L-D 15:48 → OBG 02-21 05:25
PROVIDERS: ADMIT Obstetrics & Gynecology; ATTEND Obstetrics & Gynecology
PROC: 10E0XZZ Delivery of Products of Conception, External Approach (ICD-10-PCS; principal; 2017-02-21)
PROC: 3E0234Z Introduction of Serum, Toxoid and Vaccine into Muscle, Percutaneous Approach (ICD-10-PCS; 2017-02-22)
DX: O60.12X0 Preterm labor second trimester with preterm delivery second trimester, not applicable or unspecified (principal); Z23 Encounter for immunization; Z3A.22 22 weeks gestation of pregnancy; Z37.0 Single live birth
CPT/HCPCS: 76815; 76817; 81001; 81003; 82962; 83735; 85025; 85610; 85730; 86592; 86850; 86900; 86901; 86920; 87340; 88307; 90715; 96360; 99464; G0463; J0290; J0702; J2590; J3475; J7120